=== PATIENT | male | born 1945 | race Caucasian/White ===

== ENCOUNTER 2018-02-09 05:44 | Inpatient (IN) | payer OTHER, MEDICARE ==
[2018-02-09] VITALS (11 sets, daily range): BP systolic 87–140; BP diastolic 39–82; PULSE 57–67; RESP 12–18; TEMP 97.5–97.7; O2SAT 93–98
[~2018-02-09] VITALS: Ht 177.8 cm; Wt 104.5 kg
[2018-02-09] MEDS ORDERED: HEPARIN SODIUM - SQ 10,000 UNITS/ML VIAL ONE (06:04)
[2018-02-09] MEDS ORDERED: VANCOMYCIN HCL 1000 MG VIAL ONE (06:04)
[2018-02-09] MEDS ORDERED: ceFAZolin 2 GM PREMIX 50 ML ONE (06:05)
[2018-02-09] MEDS ORDERED: CLAR10CA3 PO (06:28)
[2018-02-09] MEDS ORDERED: LACTCAP8 PO (06:28)
[2018-02-09] MEDS ORDERED: HYDR25TA5 PO (06:28)
[2018-02-09] MEDS ORDERED: ATOR40TA16 PO (06:28)
[2018-02-09] MEDS ORDERED: LEVO100T5 PO (06:28)
[2018-02-09] MEDS ORDERED: XARE10TA PO (06:28)
[2018-02-09] MEDS ORDERED: LISI-515 PO (06:28)
[2018-02-09] MEDS ORDERED: LACTATED RINGER'S 1000 ML IV PRN (06:30)
[2018-02-09] MEDS ORDERED: SODIUM CHLORID 0.9% 500 ML IV PRN (06:30)
[2018-02-09] MEDS ORDERED: PAPAVERINE 60 MG-NITROGLYCERIN 100 MCG-DILTIAZEM 100 MG in NS 100 ML IRRIGATION SCH ×4 (06:30)
[2018-02-09] MEDS ORDERED: METOPROLOL TARTRATE 25 MG TAB PO SCH (06:30)
[2018-02-09] MEDS ORDERED: CEFAZOLIN 500 MG in NS IRR BTL 500 ML IRRIGATION SCH (06:30)
[2018-02-09] MEDS ORDERED: METOPROLOL TARTRATE 25 MG TAB PO PRN (06:30)
[2018-02-09] MEDS ORDERED: POVIDONE IODINE 5% (ANTISEPSIS KIT) 4 APPLICATIONS EACH NARE PRN (06:30)
[2018-02-09] MEDS ORDERED: CEFAZOLIN INJ 2,000 MG in SODIUM CHLORIDE 0.9% INJ 100 ML IV SCH (06:30)
[2018-02-09] MEDS ORDERED: CHLORHEXIDINE GLUCONATE 2 % 1 PACK (2 CLOTHS) TOPICAL PRN (06:30)
[2018-02-09] MEDS ORDERED: SUGAMMADEX SODIUM 200 MG/2 ML VIAL IV PUSH ONE (06:45)
[2018-02-09] MEDS ORDERED: ACETAMINOPHEN 1000 MG/100 ML 100 ML IV ONE (06:45)
[2018-02-09] MEDS ORDERED: ceFAZolin 2 GM PREMIX 50 ML IV SCH (06:45)
[2018-02-09] MEDS ORDERED: MIDAZOLAM HCL 2 MG/2 ML VIAL ONE (06:45)
[2018-02-09] MEDS ORDERED: PAPAVERINE INJ 60 MG, NITROGLYCERIN INJ 100 MCG, VERAPAMIL INJ 100 MG in SODIUM CHLORID... IRRIGATION SCH (06:45)
[2018-02-09] MEDS ORDERED: fentaNYL CITRATE 250 MCG/5 ML AMP ONE (06:46)
[2018-02-09] MEDS ORDERED: INSULIN REGULAR 100 UNITS in NS 100 ML IV PRN (07:00)
[2018-02-09] MEDS: MUPIROCIN 2% OINT 22 GM TUBE EACH NARE SCH ×2 (09:00→21:00)
[2018-02-09] MEDS ORDERED: POTASSIUM CHLOR 20 MEQ PREMIX 100 ML ONE (11:31)
[2018-02-09] MEDS ORDERED: CARDIOPLEGIC IRR 1,000 ML ONE (11:31)
[2018-02-09] MEDS ORDERED: ceFAZolin INJ 1,000 MG VIAL ONE (11:35)
[2018-02-09] MEDS ORDERED: VECURONIUM BROMIDE 10 MG VIAL IV ONE (12:00)
[2018-02-09] MEDS ORDERED: SODIUM CHLORID 0.9% 500 ML INJ 500 ML IV ONE (12:00)
[2018-02-09] MEDS ORDERED: PROTAMINE SULFATE 250 MG/25 ML VIAL IV ONE (12:00)
[2018-02-09] MEDS ORDERED: NS 100 ML (PAB BAG) 300 ML IV ONE (12:00)
[2018-02-09] MEDS ORDERED: HEPARIN SODIUM - SQ 10,000 UNITS/ML VIAL OTHER ONE (12:00)
[2018-02-09] MEDS ORDERED: PHENYLEPHRINE HCL 10 MG/ML VIAL IV ONE (12:00)
[2018-02-09] MEDS ORDERED: LACTATED RINGER'S 1000 ML INJ 2,000 ML IV ONE (12:00)
[2018-02-09] MEDS ORDERED: DEXMEDETOMIDINE HCL 200 MCG/2 ML VIAL IV ONE (12:00)
[2018-02-09] MEDS ORDERED: NORMOSOL R INJ 2,000 ML IV ONE (12:00)
[2018-02-09] MEDS ORDERED: GLYCOPYRROLATE 0.2 MG/ML VIAL IV ONE (12:00)
[2018-02-09] MEDS ORDERED: SODIUM CHLOR 0.9% 250 ML INJ 500 ML IV ONE (12:00)
[2018-02-09] MEDS ORDERED: PHENYLEPH/NS 1000 MCG/10 ML SYR IV ONE (12:00)
[2018-02-09] MEDS ORDERED: ePHEDrine/NS 25 MG/5 ML SYRINGE IV ONE (12:00)
[2018-02-09] MEDS ORDERED: MAGNESIUM SULFATE 1 GM/2 ML VIAL IV ONE (12:00)
--- NOTE | 2018-02-09 12:14 | PD.OP ---
cc: Simba Mancia MD Operative Report Date of Surgery: Feb 09, 2018 Preoperative Diagnosis: Postoperative Diagnosis: Procedure: 1. Off-pump Coronary Artery Bypass Grafting x 3 with Left Internal Mammary Artery (ADAN) to Left Anterior Descending (LAD), reverse saphenous vein graft to the Diagonal 1 (D1) branch of the LAD, reverse saphenous vein graft to the Posterolateral Branch of the Right Coronary Artery (RPLB) 2. Left Atrial Appendage Excision 3. Left Leg Endoscopic Vein [place] 4. Synchronized Cardioversion 5. Intraoperative Vein Mapping Surgeon: Simba Mancia Ballroom Dance Instructor(s): Lynette Trent Operation and Findings: PREPROCEDURE DIAGNOSES 1. Severe Multi Vessel Coronary Artery Disease. 2. Chronic Atrial Fibrillation POSTPROCEDURE DIAGNOSES Same SURGICAL PROCEDURE 1. Off-pump Coronary Artery Bypass Grafting x 3 with Left Internal Mammary Artery (ADAN) to Left Anterior Descending (LAD), reverse saphenous vein graft to the Diagonal 1 (D1) branch of the LAD, reverse saphenous vein graft to the Posterolateral Branch of the Right Coronary Artery (RPLB) 2. Left Atrial Appendage Excision 3. Left Leg Endoscopic Vein [place] 4. Synchronized Cardioversion 5. Intraoperative Vein Mapping SURGEON Simba Mancia MD LEGAL ADMINISTRATOR Castillo Trent WELDER APPRENTICE ARCJackie Bean, [facility] ANESTHESIA General endotracheal MOTHER REPAIRER GISELL Rossi MD PREPARATION ChloraPrep. COUNTS Needle, sponge, and instrument counts were correct. DRAINS Two 32-[place] mediastinal tubes. COMPLICATIONS None. INDICATIONS FOR PROCEDURE The patient is a 73-year-old presenting with chest pain. Patient was noted to have multi-vessel coronary artery disease. The patient is being brought to the operating room for surgical revascularization therapy. PROCEDURE Patient was brought to the operating room and placed supine on the OR table. Following the induction of adequate general endotracheal anesthesia and placement of appropriate monitoring devices, intraoperative vein mapping was performed which revealed suitable-caliber conduit in bilateral thighs. The patient was then prepped and draped in standard sterile fashion. Next, 2500 units of intravenous heparin was given. The left greater saphenous vein was harvested endoscopically. This appeared to be a useable-caliber conduit. Simultaneously, a median sternotomy was performed and the left internal mammary artery dissected free off the posterior sternal table. The patient was systemically heparinized and anticoagulation monitored by serial ACT measurements. The internal mammary artery had good pulsatile flow in it and was a good-caliber conduit. The pericardium was then divided in the midline, the cradle created and targets analyzed. At this point, all anastomoses were performed in a beating-heart fashion using the Maquet stabilizing system. The left internal mammary artery was anastomosed to the distal LAD (1.75 mm) in an end-to-side fashion using 7-0 Prolene. Segment of saphenous vein graft was then anastomosed to the D1 (2 mm) in an end-to-side fashion using 7-0 Prolene. The final segment of saphenous vein graft was then anastomosed to the RPLB (1.75 mm ) in an end-to-side fashion using 7-0 Prolene. The proximal anastomoses were then constructed to the ascending aorta in a running manner using 6-0 Prolene. All anastomotic sites were inspected and appeared to be hemostatic and patent. The left atrial appendage was excised using a surgical stapler. Synchronized cardioversion was performed at 20J and the pt successfully converted into NSR. Protamine solution was given. Strict hemostasis was assured. The closure was undertaken. 2 chest tubes were placed. The pericardium was reapproximated in the midline. The sternum was approximated using sternal wires. The muscular and fascial layer were then closed in 3 layers. The endoscopic vein harvest site was closed in 2 layers. The patient tolerated the procedure well and was transferred to CVICU in stable condition. Simba Mancia MD Feb 09, 2018 12:14
[2018-02-09] MEDS ORDERED: MORPHINE SULFATE 2 MG/ML SYRINGE IV PUSH PRN (12:15)
[2018-02-09] MEDS ORDERED: hydrALAZINE HCL 20 MG/ML VIAL IV PUSH PRN (12:15)
[2018-02-09] MEDS ORDERED: ONDANSETRON HCL 4 MG/2 ML VIAL IV PUSH PRN (12:15)
[2018-02-09] MEDS ORDERED: SODIUM CHLORIDE 0.9% FLUSH 10 ML FLUSH IV FLUSH PRN (12:15)
[2018-02-09] MEDS ORDERED: ACETAMINOPHEN 650 MG SUPP RECTAL PRN (12:15)
[2018-02-09] MEDS ORDERED: ALBUMIN 5% INJ 250 ML IV PRN (12:30)
[2018-02-09] MEDS ORDERED: CLEVIDIPINE INJ 50 ML IV PRN (12:30)
[2018-02-09] MEDS ORDERED: MAGNESIUM SULFATE INJ 2 GM in SODIUM CHLORIDE 0.9% INJ 100 ML IV PRN ×2 (12:45→13:00)
[2018-02-09] MEDS ORDERED: LACTATED RINGER'S 1000 ML INJ 500 ML IV PRN (12:45)
[2018-02-09] MEDS ORDERED: METOPROLOL TARTRATE 5 MG/5 ML VIAL IV PUSH PRN (12:45)
[2018-02-09] MEDS ORDERED: ACETAMINOPHEN/HYDROcodone 325 MG/5 MG TAB PO PRN (12:45)
[2018-02-09] MEDS ORDERED: POTASSIUM CHLORIDE 20 MEQ CONTROLLED RELEASE TAB PO PRN ×2 (13:00)
[2018-02-09] MEDS ORDERED: DEXTROSE 50% IN WATER 50 ML VIAL(D50) IV PUSH PRN (13:00)
[2018-02-09] MEDS ORDERED: RESP: RACEPINEPHRINE 2.25% 0.5 ML NEB NEB PRN (13:00)
[2018-02-09] MEDS ORDERED: SODIUM BICARBONATE 8.4% SOLN 50 MEQ/50 ML VIAL IV PUSH PRN ×2 (13:00)
[2018-02-09] MEDS ORDERED: POTASSIUM CHLOR 20 MEQ PREMIX 100 ML IV PRN ×2 (13:00)
[2018-02-09] MEDS ORDERED: CALCIUM CHLORIDE 10% 1 GRAM/10 ML VIAL IV PUSH PRN (13:00)
[2018-02-09] MEDS ORDERED: Post-op Orders (for Pharmacy) OTHER ONE (13:00)
[2018-02-09] MEDS ORDERED: PHENYLEPHRINE INJ 40 MG in DEXTROSE 5% IN WATE 500 ML INJ 496 ML IV PRN ×2 (13:15)
[2018-02-09] MEDS ORDERED: INSULIN REGULAR (IV INFUSION) 100 UNITS in SODIUM CHLORIDE 0.9% INJ 99 ML IV PRN (13:15)
[2018-02-09] MEDS ORDERED: NITROGLYCERIN-D5W 50 MG/250 ML 250 ML IV PRN (13:15)
[2018-02-09] MEDS ORDERED: MEPERIDINE HCL 25 MG/ML VIAL IV PUSH PRN (13:15)
[2018-02-09] MEDS ORDERED: DOPamine 800 MG/500 ML INJ 500 ML IV PRN (13:30)
[2018-02-09] MEDS ORDERED: DEXMEDETOMIDINE INJ 200 MCG in SODIUM CHLORIDE 0.9% INJ 50 ML IV PRN (13:30)
[2018-02-09] MEDS ORDERED: DOBUTamine PREMIX DRIP 250 ML IV PRN (13:30)
--- NOTE | 2018-02-09 13:38 | RADRPT ---
EXAM DATE/TIME: 02/09/2018 12:44 [facility] COMPARISON: No previous studies available for comparison. INDICATIONS : Post-op CABG. MEDICAL HISTORY : None. SURGICAL HISTORY : None. ENCOUNTER: Initial ACUITY: 1 day PAIN SCORE: Non-responsive. LOCATION: chest FINDINGS: A single view of the chest demonstrates the lungs to be symmetrically aerated without evidence of mas s, infiltrate or effusion. Status post CABG. Mediastinal and left-sided chest tube without pneumothor ax. Endotracheal tube 6.5 cm above the aranza. Nasogastric tube with tip just distal to the GE juncti on. Left subclavian central line with tip in the SVC. The cardiomediastinal contours are unremarkable . Osseous structures are intact. CONCLUSION: 1. Status post CABG. 2. Support lines and tubes as described above. Adolfo Zarco MD on February 09, 2018 at 13:35 Board Certified Radiologist. This report was verified electronically.
[2018-02-09] MEDS: ACETAMINOPHEN 1000 MG/100 ML 100 ML IV SCH ×2 (13:49→18:47)
[2018-02-09] MEDS: POTASSIUM CHLOR 20 MEQ PREMIX 100 ML IV PRN ×2 (13:50→16:59)
[2018-02-09] MEDS: CALCIUM CHLORIDE INJ 1 GM in SODIUM CHLORIDE 0.9% INJ 100 ML IV PRN ×2 (13:51→16:58)
--- NOTE | 2018-02-09 15:15 | PD.CAR.PN ---
CVT Progress Note Subjective/Hospital Course: 73/ male , electively admitted for surgery, hx of abnormal stress test, underwent cardiac cath by Dr Melo Abreu , found to have multi vessel disease . PMH chronic afib on xarelto, HTN, TIA, hypothyroidism, HLP surgery : 02/09 1. Off-pump Coronary Artery Bypass Grafting x 3 with Left Internal Mammary Artery (ADAN) to Left Anterior Descending (LAD), reverse saphenous vein graft to the Diagonal 1 (D1) branch of the LAD, reverse saphenous vein graft to the Posterolateral Branch of the Right Coronary Artery (RPLB) 2. Left Atrial Appendage Excision 3. Left Leg Endoscopic Vein [place] 4. Synchronized Cardioversion 5. Intraoperative Vein Mapping Objective: Vital Signs Date Time Temp Pulse Resp B/P (MAP) Pulse Ox O2 Delivery O2 Flow Rate FiO2 02/09/18 14:25 94 Nasal Cannula 6 02/09/18 12:45 96 50 02/09/18 12:30 97 50 02/09/18 06:52 187/106 (133) 02/09/18 06:35 98.1 60 16 201/109 (139) 96 (1) S/P CABG x 3 (2) Coronary artery disease (3) Afib (4) Hypertension (5) Hyperlipemia Jazz West Feb 09, 2018 15:15
--- NOTE | 2018-02-09 15:18 | HHI.FF ---
Face to Face Verification Diagnosis: (1) Hyperlipemia (2) Coronary artery disease (3) Hypertension (4) Afib (5) S/P CABG x 3 Home Health Nursing Order: Signs/symptoms of disease process Medication education-adverse effect Wound care and dressing changes Nursing assessment with vital signs Instructions: Heart and Vascular Surgery patients *Special attention to sternal dressing Mandatory frequency Assess and evaluation, 4 days in a row The next week 3X week 2 times a week for 4 weeks 1 time a week for 5 weeks Schedule Heart and Vascular patients for full 60 day certification period Initial visit Review Open Heart Surgery Discharge Instructions (Sternal precautions, Activity, Elastic hose, Incision care, Driving, Incentive spirometry, Smoking, [place], Work and other) Need Betadine to paint incision Medication reconciliation Importance of follow up care/ check on appointments Make calendar record temperature daily When to call [facility] [place] nurse, review instructions, phone list Incentive Spirometry, demonstration Visit 1- Begin discharge instruction for patient family and/ or caregiver using teach back method- Signs and symptoms of infection Disease characteristics Medicines and side effects Foods and nutrition/ appetite Infection control/ hand washing/ hygiene Visit 2- Continue teaching Discharge instructions- include additional information on smoking cessation , sternal dressing (sternal vac) Visit 3- Continue teaching- Cough and deep breathing, incision monitoring. Choose my plate Visit 4- Continue teaching- Discuss limitations Discuss how they are feeling Discuss progress toward goals Remaining visits- continue teaching and monitoring For any questions please call : Tuesday 8am-5pm Heart & Vascular Surgery Office ( Dr. Mancia & Dr. Bella), After Hours / Nights (5pm -8am) Weekends and Holidays Please call [facility] Cardiac Intermediate Care Unit (CIC) Charge Nurse PREVENA Single Use Negative Wound Therapy System Caregiver Instruction Sheet 1. A Prevena dressing system was applied to the chest incision during surgery , to promote wound healing. It works via a suction device (negative pressure wound therapy) to remove low to moderate levels of exudate (drainage) and infectious materials. We recommend that the device stay in place for up to seven days, from day of surgery. 2. Day of Surgery__/ Day of Removal ___/ 3. The dressing should only be removed by a health skin care therapist. Please arrange removal of device to coincide with Home Health visit and or with Nursing staff at Rehab 4. If skin reddening or irritation of skin occurs, or excessive drainage, please notify the Cardiovascular Surgeons office at [phone]. 5. Light showering is permissible; however the pump should be disconnected and placed in safe location, where it will not get wet. The dressing should not be exposed to direct spray or submerged in water. No bath tub / shower only. Ensure the end of the tubing attached to the dressing is facing down so that water does not enter the top of the tube. 6. To remove Prevena dressing: press purple button to turn off device / remove the suction. Then disconnect the tubing from the pump. The fixation strips should be stretched away from the skin and the dressing lifted at one corner and peeled back until it has been fully removed. 7. After removal, it is ok to shower daily using liquid dial soap and clean wash cloth, rinse and pat dry, and leave incision open to air dry. For any concerns regarding Prevena dressing, and or wounds, please contact Jessica Diaz, patient navigator at [phone] or notify the Cardiovascular Surgeons office at [phone]. Incentive spirometry Q1 hr x 10, while awake, also use acapella device hourly whole awake Sternal Breast Bone Precautions: NO pushing or pulling, ( pt must use sternal pillow to support chest with all activities and with coughing ( takes up to 3 months breast bone to heal ) Daily incision care: ok to shower daily, no tub bath. Wash all incisions with liquid dial soap, clean wash cloth to each site, rinse and pat dry. Observe for any signs of infection, such as drainage which is dark yellow, benedict, green or foul smelling. Immediately report to the surgeon any drainage from the chest incision, or legs, and for any abnormal drainage from the chest tube sites. Notify surgeon if any temp >101.5 degrees F. When specialty dressing removed/ or if you do not have one, continue to shower daily as above, then rinse and pat incision dry and paint with betadine daily x 5 days. Allow steri strips to fall off if you have any. Avoid lotions, creams, salves, oils, etc. for the first month Please see attached forms for additional instructions regarding post Open Heart specialty wound vacuum dressings. SUZY or Prevena , Dressing to be removed by Nursing staff on __02/16/18 F/U appointment: as per DC instructions: PCP in 2 weeks, CV surgeon 2 weeks, Securities Clerk 3-4 weeks For any questions regarding incisions/ dressing / meds / post op care or above Symptoms, Tuesday 8am-5pm Heart & Vascular Surgery Office ( Dr. Mancia & Dr. Bella), After Hours / Nights (5pm -8am) Weekends and Holidays Please call [facility] Unit (CIC) Charge Nurse I have seen patient Nathaniel Trevizo on 02/09/18. My clinical findings support the need for the requested home health care services because: Deconditioned w/ increased weakness I certify that my clinical findings support that this patient is homebound because: Post-op weakness Jazz eWst Feb 09, 2018 15:18
[2018-02-09] MEDS: RESP: ALBUTEROL 2.5 MG/IPRATROPIUM 0.5 MG NEB (SCH) NEB ×2 (15:37→21:32)
[2018-02-09] MEDS ORDERED: DEXMEDETOMIDINE 200 MCG in NS 48 ML IV PRN (16:00)
[2018-02-09] MEDS: ceFAZolin 2 GM PREMIX 50 ML IV SCH (17:00)
[2018-02-09] MEDS ORDERED: SODIUM CHLORIDE 0.9% FLUSH 10 ML FLUSH IV FLUSH SCH (21:00)
[2018-02-09] MEDS ORDERED: AMIODARONE 200 MG TAB PO SCH (21:00)
[2018-02-09] MEDS: ATORVASTATIN 40 MG TAB PO SCH (22:10)
[2018-02-10] VITALS (20 sets, daily range): BP systolic 103–159; BP diastolic 68–94; PULSE 70–100; RESP 16–22; TEMP 97.5–98.5; O2SAT 91–96
[2018-02-10] MEDS: ceFAZolin 2 GM PREMIX 50 ML IV SCH ×4 (00:15→23:15)
[2018-02-10] MEDS: ACETAMINOPHEN 1000 MG/100 ML 100 ML IV SCH ×2 (00:17→05:59)
[2018-02-10] MEDS: RESP: ALBUTEROL 2.5 MG/IPRATROPIUM 0.5 MG NEB (SCH) NEB ×3 (03:45→20:21)
[2018-02-10 04:35] LABS: HEMATOCRIT 37.3 % (39.0-51.0); HEMOGLOBIN 12.9 GM/DL (13.0-17.0); MEAN CELL VOLUME 88.7 FL (80.0-100.0); MEAN CORPUSCULAR HEMOGLOBIN 30.6 PG (27.0-34.0); MEAN CORPUSCULAR HGB CONC 34.5 % (32.0-36.0); MEAN PLATELET VOLUME 8.5 FL (7.0-11.0); PLATELET COUNT 150 TH/MM3 (150-450); RED BLOOD COUNT 4.21 MIL/MM3 (4.50-5.90); RED CELL DISTRIBUTION WIDTH 13.2 % (11.6-17.2); WHITE BLOOD COUNT 10.3 TH/MM3 (4.0-11.0)
[2018-02-10 05:02] LABS: BICARBONATE 24.5 MEQ/L (21.0-32.0); CALCIUM 8.3 MG/DL (8.5-10.1); CREATININE 1.12 MG/DL (0.60-1.30); MAGNESIUM 1.5 MG/DL (1.5-2.5)
--- NOTE | 2018-02-10 05:03 | RADRPT ---
EXAM DATE/TIME: 02/10/2018 04:12 [facility] COMPARISON: CHEST SINGLE AP, February 09, 2018, 12:44. INDICATIONS : Status post CABG. MEDICAL HISTORY : None. SURGICAL HISTORY : None. ENCOUNTER: Subsequent ACUITY: 1 day PAIN SCORE: Non-responsive. LOCATION: Bilateral chest FINDINGS: A single portable frontal view of the chest shows a left thoracostomy tube without pneumothorax. Left subclavian central line. Low lung volumes. No infiltrate or effusion. Heart is normal in size. Media n sternotomy wires. CONCLUSION: Life-support lines. Clear lungs. Juan Jose Amador Jr., MD on February 10, 2018 at 5:01 Board Certified Radiologist. This report was verified electronically.
[2018-02-10] MEDS: PANTOPRAZOLE SOD 40 MG DELAYED RELEASE TAB PO SCH (05:54)
[2018-02-10] MEDS: LEVOTHYROXINE SODIUM 100 MCG TAB PO SCH (05:54)
[2018-02-10] MEDS: MUPIROCIN 2% OINT 22 GM TUBE EACH NARE SCH ×2 (09:00→21:00)
[2018-02-10] MEDS ORDERED: SOD PHOSPHATE/SOD BIPHOSPHATE (ADULT) ENEMA 133ML RECTAL PRN (09:00)
[2018-02-10] MEDS ORDERED: BISACODYL 10 MG SUPP RECTAL PRN (09:00)
[2018-02-10] MEDS ORDERED: DEXTROSE 50% IN WATER 50 ML VIAL(D50) IV PUSH PRN (09:00)
[2018-02-10] MEDS: CLOPIDOGREL 75 MG TAB PO SCH (09:03)
[2018-02-10] MEDS: ASPIRIN 81 MG CHEW TAB PO SCH (09:04)
[2018-02-10] MEDS ORDERED: FUROSEMIDE 40 MG/4 ML VIAL IV PUSH ONE (10:00)
[2018-02-10] MEDS ORDERED: GLUCAGON 1 MG/ML VIAL OTHER PRN (10:00)
[2018-02-10] MEDS ORDERED: POTASSIUM CHLORIDE 10 MEQ CONTROLLED RELEASE TAB PO ONE (10:00)
[2018-02-10] MEDS: RESP: ALBUTEROL 2.5 MG/IPRATROPIUM 0.5 MG NEB (PRN) NEB ×2 (10:03→12:08)
[2018-02-10] MEDS: MULTIVITAMINS/MINERALS THERAPEUTIC TAB PO SCH (10:07)
[2018-02-10] MEDS: DOCUSATE SODIUM 100 MG CAP PO SCH ×2 (10:08→20:46)
[2018-02-10] MEDS: METOPROLOL TARTRATE 25 MG TAB PO SCH ×2 (10:08→20:46)
[2018-02-10] MEDS: MAGNESIUM HYDROXIDE SUSP 30 ML CUP PO SCH (10:11)
[2018-02-10] MEDS: AMIODARONE 200 MG TAB PO SCH ×2 (10:11→20:46)
[2018-02-10] MEDS: INSULIN ASPART SUPPLEMENTAL SCALE SQ SCH ×4 (10:14→21:33)
--- NOTE | 2018-02-10 16:21 | PD.CAR.PN ---
CVT Progress Note Subjective/Hospital Course: 73/ male , electively admitted for surgery, hx of abnormal stress test, underwent cardiac cath by Dr Melo Abreu , found to have multi vessel disease . PMH chronic afib on xarelto, HTN, TIA, hypothyroidism, HLP surgery : 02/09 1. Off-pump Coronary Artery Bypass Grafting x 3 with Left Internal Mammary Artery (ADAN) to Left Anterior Descending (LAD), reverse saphenous vein graft to the Diagonal 1 (D1) branch of the LAD, reverse saphenous vein graft to the Posterolateral Branch of the Right Coronary Artery (RPLB) 2. Left Atrial Appendage Excision 3. Left Leg Endoscopic Vein [place] 4. Synchronized Cardioversion 5. Intraoperative Vein Mapping extubated after surgery crystalloid 2800cc, 280cc cell saver, 600cc cell saver 02/10 up in chair , on nasal cannula remains in NSR was on xarelto at home leave chest tubes in , transfer to stepdown Objective: GENERAL: A&O x 3 SKIN: Warm and dry. prevena dressing to chest, incision intact left leg HEAD: Normocephalic. EYES: No scleral icterus. No injection or drainage. NECK: Supple, trachea midline. No JVD or lymphadenopathy. CARDIOVASCULAR: Regular rate and rhythm without murmurs, gallops, or rubs. RESPIRATORY: Breath sounds equal bilaterally. No accessory muscle use. chest tube to wall suction, no air leak , drained 80cc/ 12 hrs GASTROINTESTINAL: Abdomen soft, non-tender, nondistended. MUSCULOSKELETAL: No cyanosis, or edema. BACK: Nontender without obvious deformity. No CVA tenderness. Vital Signs Date Time Temp Pulse Resp B/P (MAP) Pulse Ox O2 Delivery O2 Flow Rate FiO2 02/10/18 16:00 83 02/10/18 15:00 91 Nasal Cannula 3.00 02/10/18 15:00 97.9 95 19 131/75 (93) 91 02/10/18 15:00 76 02/10/18 14:00 92 02/10/18 13:00 95 02/10/18 12:15 77 22 126/71 (89) 96 02/10/18 11:00 91 Nasal Cannula 4.00 02/10/18 11:00 98.5 89 16 111/68 (82) 93 02/10/18 11:00 84 4/20/18 10:15 16 02/10/18 10:05 94 Nasal Cannula 4.00 02/10/18 08:00 93 Nasal Cannula 4.00 02/10/18 08:00 98.2 91 16 145/94 (111) 93 Arterial Line 02/10/18 08:00 91 02/10/18 05:00 18 02/10/18 04:57 92 Nasal Cannula 4.00 02/10/18 04:47 90 Nasal Cannula 4.00 02/10/18 04:00 90 Nasal Cannula 4.00 02/10/18 04:00 97.5 83 20 103/68 (80) 94 113/68 (83) 02/10/18 03:00 81 02/10/18 00:50 18 02/10/18 00:00 98.4 70 20 128/77 (94) 95 145/79 (101) 02/09/18 23:21 65 02/09/18 23:19 95 Nasal Cannula 3.00 02/09/18 22:00 133/82 (99) 94 140/64 (89) 02/09/18 21:32 93 Nasal Cannula 3.00 02/09/18 20:00 97.7 65 18 96 131/63 (85) 02/09/18 20:00 96 Nasal Cannula 3.00 02/09/18 19:30 97 Nasal Cannula 5.00 02/09/18 19:00 57 Result Diagram: 02/10/185 02/10/18414 Telemetry: NSR EKG no acute changes (1) S/P CABG x 3 Plan: ASA, statin , plavix BB , statin OOB ambulate, pulm toileting CM to eval for C at discharge (2) Coronary artery disease (3) Afib Plan: s/p left atrial appendage excision in NSR was on xarelto at home (4) Hypertension Plan: controlled (5) Hyperlipemia Plan: on statin Jazz West Feb 10, 2018 16:21
[2018-02-10] MEDS: ACETAMINOPHEN 325 MG TAB PO PRN (20:45)
[2018-02-10] MEDS: SENNOSIDES 8.6 MG TAB PO SCH (20:46)
[2018-02-10] MEDS: ATORVASTATIN 40 MG TAB PO SCH (20:46)
[2018-02-11] VITALS (26 sets, daily range): BP systolic 122–153; BP diastolic 73–90; PULSE 65–90; RESP 16–20; TEMP 97.4–98.9; O2SAT 88–95
[2018-02-11] MEDS: INSULIN ASPART SUPPLEMENTAL SCALE SQ SCH ×5 (02:00→21:00)
[2018-02-11] MEDS: ACETAMINOPHEN 325 MG TAB PO PRN ×4 (03:08→19:53)
[2018-02-11 04:29] LABS: AUTOMATED NEUTROPHIL # 7.6 TH/MM3 (1.8-7.7); BASOPHIL % 0.3 % (0.0-2.0); EOSINOPHIL # 0.2 TH/MM3 (0-0.4); EOSINOPHIL % 1.5 % (0.0-4.0); HEMATOCRIT 32.9 % (39.0-51.0); HEMOGLOBIN 11.5 GM/DL (13.0-17.0); LYMPH % 10.5 % (9.0-44.0); LYMPHOCYTE # 1.1 TH/MM3 (1.0-4.8); MEAN CORPUSCULAR HEMOGLOBIN 30.8 PG (27.0-34.0); MEAN PLATELET VOLUME 8.3 FL (7.0-11.0); MONO % 12.7 % (0.0-8.0); MONOCYTE # 1.3 TH/MM3 (0-0.9); PLATELET COUNT 121 TH/MM3 (150-450); RED BLOOD COUNT 3.73 MIL/MM3 (4.50-5.90); RED CELL DISTRIBUTION WIDTH 13.3 % (11.6-17.2); WHITE BLOOD COUNT 10.1 TH/MM3 (4.0-11.0)
[2018-02-11 04:48] LABS: BICARBONATE 27.6 MEQ/L (21.0-32.0); CALCIUM 7.7 MG/DL (8.5-10.1); CREATININE 1.08 MG/DL (0.60-1.30); MAGNESIUM 1.6 MG/DL (1.5-2.5)
[2018-02-11] MEDS: LEVOTHYROXINE SODIUM 100 MCG TAB PO SCH (06:11)
[2018-02-11] MEDS: PANTOPRAZOLE SOD 40 MG DELAYED RELEASE TAB PO SCH (06:11)
[2018-02-11] MEDS: RESP: ALBUTEROL 2.5 MG/IPRATROPIUM 0.5 MG NEB (SCH) NEB ×3 (07:40→21:10)
--- NOTE | 2018-02-11 08:19 | PD.CAR.PN ---
CVT Progress Note CVT: POD #: 2 Subjective/Hospital Course: 73/ male , electively admitted for surgery, hx of abnormal stress test, underwent cardiac cath by Dr Melo Abreu , found to have multi vessel disease . PMH chronic afib on xarelto, HTN, TIA, hypothyroidism, HLP surgery : 02/09 1. Off-pump Coronary Artery Bypass Grafting x 3 with Left Internal Mammary Artery (ADAN) to Left Anterior Descending (LAD), reverse saphenous vein graft to the Diagonal 1 (D1) branch of the LAD, reverse saphenous vein graft to the Posterolateral Branch of the Right Coronary Artery (RPLB) 2. Left Atrial Appendage Excision 3. Left Leg Endoscopic Vein [place] 4. Synchronized Cardioversion 5. Intraoperative Vein Mapping extubated after surgery crystalloid 2800cc, 280cc cell saver, 600cc cell saver 02/10 up in chair , on nasal cannula remains in NSR was on xarelto at home leave chest tubes in , transfer to stepdown 02/11/18 No complaints today, doing well Objective: Vital Signs Date Time Temp Pulse Resp B/P (MAP) Pulse Ox O2 Delivery O2 Flow Rate FiO2 02/11/18 07:43 94 Nasal Cannula 3.00 02/11/18 07:00 98.8 77 16 131/82 (98) 95 02/11/18 07:00 95 Nasal Cannula 3.00 02/11/18 06:29 79 02/11/18 05:23 72 02/11/18 04:12 65 02/11/18 03:50 81 02/11/18 03:20 Nasal Cannula 3.00 02/11/18 03:20 98.9 90 20 150/90 (110) 93 02/11/18 02:30 78 02/11/18 01:21 81 02/11/18 00:00 69 02/10/18 23:45 98.5 79 20 134/74 (94) 92 02/10/18 23:45 Nasal Cannula 3.00 02/10/18 23:00 87 02/10/18 22:00 72 02/10/18 21:00 70 02/10/18 20:40 75 02/10/18 20:21 92 Nasal Cannula 3.00 02/10/18 19:50 Nasal Cannula 3.00 02/10/18 19:50 98.3 93 21 159/84 (109) 93 02/10/18 19:50 100 02/10/18 18:00 94 02/10/18 17:00 93 02/10/18 16:00 83 02/10/18 15:00 91 Nasal Cannula 3.00 02/10/18 15:00 97.9 95 19 131/75 (93) 91 02/10/18 15:00 76 02/10/18 14:00 92 02/10/18 13:00 95 02/10/18 12:15 77 22 126/71 (89) 96 02/10/18 11:00 91 Nasal Cannula 4.00 02/10/18 11:00 98.5 89 16 111/68 (82) 93 02/10/18 11:00 84 02/10/18 10:15 16 02/10/18 10:05 94 Nasal Cannula 4.00 Labs: Laboratory Tests Test 02/11/18 03:40 White Blood Count 10.1 TH/MM3 (4.0-11.0) Red Blood Count 3.73 MIL/MM3 (4.50-5.90) Hemoglobin 11.5 GM/DL (13.0-17.0) Hematocrit 32.9 % (39.0-51.0) Mean Corpuscular Volume 88.0 FL (80.0-100.0) Mean Corpuscular Hemoglobin 30.8 PG (27.0-34.0) Mean Corpuscular Hemoglobin Concent 35.0 % (32.0-36.0) Red Cell Distribution Width 13.3 % (11.6-17.2) Platelet Count 121 TH/MM3 (150-450) Mean Platelet Volume 8.3 FL (7.0-11.0) Neutrophils (%) (Auto) 75.0 % (16.0-70.0) Lymphocytes (%) (Auto) 10.5 % (9.0-44.0) Monocytes (%) (Auto) 12.7 % (0.0-8.0) Eosinophils (%) (Auto) 1.5 % (0.0-4.0) Basophils (%) (Auto) 0.3 % (0.0-2.0) Neutrophils # (Auto) 7.6 TH/MM3 (1.8-7.7) Lymphocytes # (Auto) 1.1 TH/MM3 (1.0-4.8) Monocytes # (Auto) 1.3 TH/MM3 (0-0.9) Eosinophils # (Auto) 0.2 TH/MM3 (0-0.4) Basophils # (Auto) 0.0 TH/MM3 (0-0.2) CBC Comment DIFF FINAL Differential Comment Blood Urea Nitrogen 16 MG/DL (7-18) Creatinine 1.08 MG/DL (0.60-1.30) Random Glucose 121 MG/DL (74-106) Calcium Level 7.7 MG/DL (8.5-10.1) Magnesium Level 1.6 MG/DL (1.5-2.5) Sodium Level 139 MEQ/L (136-145) Potassium Level 3.5 MEQ/L (3.5-5.1) Chloride Level 103 MEQ/L (98-107) Carbon Dioxide Level 27.6 MEQ/L (21.0-32.0) Anion Gap 8 MEQ/L (5-15) Estimat Glomerular Filtration Rate 67 ML/MIN (>89) Result Diagram: 02/11/18 0340 02/11/18 0340 Cardiovascular: RRR Telemetry: NSR Pulmonary: CTA GI/: NABS Incision: dry and intact CT: 120ml/12hrs Plan: Continue chest tubes one more day. Encourage ambulation Stim BM Diurese Start BB (1) S/P CABG x 3 Plan: ASA, statin , plavix BB , statin OOB ambulate, pulm toileting CM to eval for HHC at discharge (2) Coronary artery disease (3) Afib Plan: s/p left atrial appendage excision in NSR was on xarelto at home (4) Hypertension Plan: controlled (5) Hyperlipemia Plan: on statin Mela Bella MD Feb 11, 2018 08:19
[2018-02-11] MEDS ORDERED: PILL SPLITTER OTHER PRN (08:30)
[2018-02-11] MEDS: MUPIROCIN 2% OINT 22 GM TUBE EACH NARE SCH ×2 (09:00→21:00)
--- NOTE | 2018-02-11 09:00 | EKG ---
Date Performed: 02/10/2018 Time Performed: 06:59:16 PTAGE: 73 years EKG: Sinus rhythm Lead(s) unsuitable for analysis: V4 Normal ECG based on available leads NO PREVIOUS TRACING DOCTOR: Daryl Bernard Interpretating Date/Time 02/11/2018 08:58:58
[2018-02-11] MEDS: POLYETHYLENE GLYCOL 17 GM PKG PO SCH (09:52)
[2018-02-11] MEDS: FUROSEMIDE 40 MG/4 ML VIAL IV PUSH SCH ×2 (09:54→17:32)
[2018-02-11] MEDS: MAGNESIUM HYDROXIDE SUSP 30 ML CUP PO SCH (09:54)
[2018-02-11] MEDS: DOCUSATE SODIUM 100 MG CAP PO SCH ×2 (09:54→21:04)
[2018-02-11] MEDS: LORATADINE 10 MG TAB PO SCH (09:55)
[2018-02-11] MEDS: METOPROLOL TARTRATE 25 MG TAB PO SCH ×2 (09:55→21:04)
[2018-02-11] MEDS: CLOPIDOGREL 75 MG TAB PO SCH (09:56)
[2018-02-11] MEDS: ASPIRIN 81 MG CHEW TAB PO SCH (09:56)
[2018-02-11] MEDS: AMIODARONE 200 MG TAB PO SCH ×2 (09:56→21:04)
[2018-02-11] MEDS: POTASSIUM CHLORIDE 10 MEQ CONTROLLED RELEASE TAB PO SCH ×2 (09:56→21:04)
[2018-02-11] MEDS: MULTIVITAMINS/MINERALS THERAPEUTIC TAB PO SCH (09:57)
[2018-02-11] MEDS: SODIUM CHLORIDE 0.9% FLUSH 10 ML FLUSH IV FLUSH PRN (09:57)
[2018-02-11] MEDS ORDERED: PNEUMOCOCCAL POLYVALENT INJ 25 MCG/0.5 ML SYR IM ONE (10:00)
[2018-02-11] MEDS: ATORVASTATIN 40 MG TAB PO SCH (21:04)
[2018-02-11] MEDS: SENNOSIDES 8.6 MG TAB PO SCH (21:04)
[2018-02-12] VITALS (27 sets, daily range): BP systolic 114–163; BP diastolic 65–91; PULSE 67–84; RESP 20; TEMP 97.9–98.7; O2SAT 91–94
[2018-02-12] MEDS: LEVOTHYROXINE SODIUM 100 MCG TAB PO SCH (05:17)
[2018-02-12] MEDS: PANTOPRAZOLE SOD 40 MG DELAYED RELEASE TAB PO SCH (05:17)
[2018-02-12] MEDS: RESP: ALBUTEROL 2.5 MG/IPRATROPIUM 0.5 MG NEB (SCH) NEB (07:47)
[2018-02-12] MEDS: INSULIN ASPART SUPPLEMENTAL SCALE SQ SCH ×4 (08:00→21:00)
[2018-02-12] MEDS: MUPIROCIN 2% OINT 22 GM TUBE EACH NARE SCH ×2 (09:00→21:00)
[2018-02-12] MEDS: DOCUSATE SODIUM 100 MG CAP PO SCH ×2 (09:28→21:00)
[2018-02-12] MEDS: MAGNESIUM HYDROXIDE SUSP 30 ML CUP PO SCH (09:28)
[2018-02-12] MEDS: ASPIRIN 81 MG CHEW TAB PO SCH (09:28)
[2018-02-12] MEDS: POLYETHYLENE GLYCOL 17 GM PKG PO SCH (09:28)
[2018-02-12] MEDS: METOPROLOL TARTRATE 25 MG TAB PO SCH ×2 (09:29→21:30)
[2018-02-12] MEDS: CLOPIDOGREL 75 MG TAB PO SCH (09:29)
[2018-02-12] MEDS: AMIODARONE 200 MG TAB PO SCH ×2 (09:29→21:29)
[2018-02-12] MEDS: MULTIVITAMINS/MINERALS THERAPEUTIC TAB PO SCH (09:29)
[2018-02-12] MEDS: POTASSIUM CHLORIDE 10 MEQ CONTROLLED RELEASE TAB PO SCH ×2 (09:29→21:29)
[2018-02-12] MEDS: LORATADINE 10 MG TAB PO SCH (09:29)
[2018-02-12] MEDS: FUROSEMIDE 40 MG/4 ML VIAL IV PUSH SCH ×2 (09:30→17:06)
[2018-02-12] MEDS: SODIUM CHLORIDE 0.9% FLUSH 10 ML FLUSH IV FLUSH PRN ×2 (09:30→21:30)
[2018-02-12] MEDS: MAGNESIUM SULFATE 1 GM PREMIX 100 ML IV SCH ×2 (11:00→12:00)
--- NOTE | 2018-02-12 11:47 | PD.CAR.PN ---
CVT Progress Note CVT: POD #: 3 Subjective/Hospital Course: 73/ male , electively admitted for surgery, hx of abnormal stress test, underwent cardiac cath by Dr Melo Abreu , found to have multi vessel disease . PMH chronic afib on xarelto, HTN, TIA, hypothyroidism, HLP surgery : 02/09 1. Off-pump Coronary Artery Bypass Grafting x 3 with Left Internal Mammary Artery (ADAN) to Left Anterior Descending (LAD), reverse saphenous vein graft to the Diagonal 1 (D1) branch of the LAD, reverse saphenous vein graft to the Posterolateral Branch of the Right Coronary Artery (RPLB) 2. Left Atrial Appendage Excision 3. Left Leg Endoscopic Vein [place] 4. Synchronized Cardioversion 5. Intraoperative Vein Mapping extubated after surgery crystalloid 2800cc, 280cc cell saver, 600cc cell saver 02/10 up in chair , on nasal cannula remains in NSR was on xarelto at home leave chest tubes in , transfer to stepdown 02/11/18 No complaints today, doing well 02/12/18 No complaints today. Doing well Objective: Vital Signs Date Time Temp Pulse Resp B/P (MAP) Pulse Ox O2 Delivery O2 Flow Rate FiO2 02/12/18 10:00 75 02/12/18 09:00 83 02/12/18 08:00 84 02/12/18 07:47 92 Nasal Cannula 5.00 02/12/18 07:35 98.7 77 20 119/80 (93) 94 02/12/18 07:35 67 02/12/18 07:35 94 4.00 02/12/18 06:12 73 02/12/18 05:00 74 02/12/18 04:44 91 Nasal Cannula 4.00 02/12/18 04:43 98.7 78 126/78 (94) 91 02/12/18 04:00 78 02/12/18 03:00 72 02/12/18 02:00 72 02/12/18 01:00 72 02/12/18 00:33 92 Nasal Cannula 4.00 02/12/18 00:31 98.5 75 122/67 (85) 92 02/12/18 00:00 70 02/11/18 23:00 72 02/11/18 22:00 72 02/11/18 21:20 Nasal Cannula 4.00 02/11/18 21:00 76 02/11/18 20:00 86 02/11/18 19:00 98.3 88 153/82 (105) 91 02/11/18 19:00 84 02/11/18 19:00 91 Nasal Cannula 4.00 02/11/18 18:00 79 02/11/18 17:00 83 02/11/18 16:00 84 02/11/18 15:20 16 02/11/18 15:00 79 02/11/18 15:00 91 Nasal Cannula 4.00 02/11/18 15:00 98.0 81 16 150/73 (98) 91 02/11/18 14:00 86 02/11/18 13:00 76 02/11/18 12:00 88 Result Diagram: 02/11/1833902/11/18 034 Cardiovascular: RRR Telemetry: NSR Pulmonary: Few crackles bilat GI/: NABS, NT Incision: dry and intact CT: ~80ml/12hrs Plan: Wean O2 Diurese Stim BM Encourage ambulation Possible d/c in AM (1) S/P CABG x 3 Plan: ASA, statin , plavix BB , statin OOB ambulate, pulm toileting CM to eval for HHC at discharge (2) Coronary artery disease (3) Afib Plan: s/p left atrial appendage excision in NSR was on xarelto at home (4) Hypertension Plan: controlled (5) Hyperlipemia Plan: on statin Mela Bella MD Feb 12, 2018 11:47
[2018-02-12] MEDS: ACETAMINOPHEN 325 MG TAB PO PRN ×2 (13:41→21:30)
[2018-02-12] MEDS: SENNOSIDES 8.6 MG TAB PO SCH (21:00)
[2018-02-12] MEDS: ATORVASTATIN 40 MG TAB PO SCH (21:29)
[2018-02-13] VITALS (32 sets, daily range): BP systolic 96–151; BP diastolic 52–82; PULSE 62–92; RESP 16; TEMP 97.9–98.6; O2SAT 90–93
[2018-02-13] MEDS: PANTOPRAZOLE SOD 40 MG DELAYED RELEASE TAB PO SCH (06:28)
[2018-02-13] MEDS: LEVOTHYROXINE SODIUM 100 MCG TAB PO SCH (06:28)
[2018-02-13] MEDS: INSULIN ASPART SUPPLEMENTAL SCALE SQ SCH ×4 (07:07→21:27)
[2018-02-13] MEDS: FUROSEMIDE 40 MG/4 ML VIAL IV PUSH SCH (08:45)
[2018-02-13] MEDS: ASPIRIN 81 MG CHEW TAB PO SCH (08:45)
[2018-02-13] MEDS: MULTIVITAMINS/MINERALS THERAPEUTIC TAB PO SCH (08:45)
[2018-02-13] MEDS: AMIODARONE 200 MG TAB PO SCH ×2 (08:45→20:28)
[2018-02-13] MEDS: LORATADINE 10 MG TAB PO SCH (08:46)
[2018-02-13] MEDS: CLOPIDOGREL 75 MG TAB PO SCH (08:46)
[2018-02-13] MEDS: DOCUSATE SODIUM 100 MG CAP PO SCH ×2 (08:46→20:28)
[2018-02-13] MEDS: POTASSIUM CHLORIDE 10 MEQ CONTROLLED RELEASE TAB PO SCH (08:46)
[2018-02-13] MEDS: MAGNESIUM HYDROXIDE SUSP 30 ML CUP PO SCH (08:47)
[2018-02-13] MEDS: METOPROLOL TARTRATE 25 MG TAB PO SCH ×2 (08:47→20:28)
[2018-02-13] MEDS: POLYETHYLENE GLYCOL 17 GM PKG PO SCH (08:47)
--- NOTE | 2018-02-13 09:57 | RADRPT ---
EXAM DATE/TIME: 02/13/2018 09:33 [facility] COMPARISON: CHEST SINGLE AP, February 10, 2018, 4:12. INDICATIONS : Evaluate for pneumothorax, status chest tube removal. MEDICAL HISTORY : None. SURGICAL HISTORY : CABG. ENCOUNTER: Subsequent ACUITY: 4 - 6 days PAIN SCORE: 0/10 LOCATION: Bilateral chest FINDINGS: A single AP erect portable view of the chest was obtained and demonstrates interval removal of the pr eviously noted left-sided chest tube with no visualized pneumothorax. Mild hazy opacity is present at the left lung base. Right lung is clear. Patient is status post median sternotomy. The left subclavi an central line has been removed as well. The left costophrenic angle appears mildly blunted. There a re multiple overlying electrocardiogram leads. CONCLUSION: 1. Interval removal of left-sided chest tube and left subclavian central venous line with no pneumoth orax. 2. Mild hazy opacity at the left lung base with apparent blunting of left costophrenic angle which co uld indicate infiltrate and/or effusion. Valente Chester MD on February 13, 2018 at 9:51 Board Certified Radiologist. This report was verified electronically.
[2018-02-13 10:23] LABS: BICARBONATE 29.1 MEQ/L (21.0-32.0); CALCIUM 8.8 MG/DL (8.5-10.1); CREATININE 1.37 MG/DL (0.60-1.30)
[2018-02-13] MEDS ORDERED: POTASSIUM CHLORIDE 20 MEQ CONTROLLED RELEASE TAB PO ONE (12:30)
[2018-02-13] MEDS ORDERED: OXYGENDME NAS.CANULA (14:15)
--- NOTE | 2018-02-13 14:17 | PD.CAR.PN ---
CVT Progress Note Subjective/Hospital Course: 73/ male , electively admitted for surgery, hx of abnormal stress test, underwent cardiac cath by Dr Melo Abreu , found to have multi vessel disease . PMH chronic afib on xarelto, HTN, TIA, hypothyroidism, HLP surgery : 02/09 1. Off-pump Coronary Artery Bypass Grafting x 3 with Left Internal Mammary Artery (ADAN) to Left Anterior Descending (LAD), reverse saphenous vein graft to the Diagonal 1 (D1) branch of the LAD, reverse saphenous vein graft to the Posterolateral Branch of the Right Coronary Artery (RPLB) 2. Left Atrial Appendage Excision 3. Left Leg Endoscopic Vein [place] 4. Synchronized Cardioversion 5. Intraoperative Vein Mapping extubated after surgery crystalloid 2800cc, 280cc cell saver, 600cc cell saver 02/10 up in chair , on nasal cannula remains in NSR was on xarelto at home leave chest tubes in , transfer to stepdown 02/11/18 No complaints today, doing well 02/12/18 No complaints today. Doing well 02/13 did not pass home walk test decrease lasix dose, dc plavix and resume xarelto eval for dc in am recheck BMP in am Objective: Vital Signs Date Time Temp Pulse Resp B/P (MAP) Pulse Ox O2 Delivery O2 Flow Rate FiO2 02/13/18 14:00 80 02/13/18 13:00 76 02/13/18 12:00 77 02/13/18 11:32 92 Nasal Cannula 2.00 02/13/18 11:31 98.3 74 16 122/78 (93) 92 02/13/18 11:15 2.00 02/13/18 11:00 66 02/13/18 10:00 78 02/13/18 09:13 93 Nasal Cannula 2.00 02/13/18 09:00 76 02/13/18 08:50 96/52 (67) 02/13/18 08:30 94 Nasal Cannula 2.00 02/13/18 08:00 68 02/13/18 08:00 98.0 78 98/53 (68) 90 02/13/18 07:48 88 Nasal Cannula 1.00 02/13/18 07:00 66 02/13/18 06:00 71 02/13/18 05:04 68 02/13/18 04:41 97.9 69 115/72 (86) 92 02/13/18 04:41 92 Nasal Cannula 1.00 02/13/18 04:00 65 02/13/18 03:00 66 02/13/18 02:00 62 02/13/18 01:00 62 02/13/18 00:48 91 Nasal Cannula 2.00 02/13/18 00:40 98.1 69 129/75 (93) 91 02/13/18 00:00 76 02/12/18 23:00 68 02/12/18 22:22 Nasal Cannula 2.00 02/12/18 22:00 78 02/12/18 21:00 80 02/12/18 20:00 80 02/12/18 19:00 93 Nasal Cannula 2.00 02/12/18 19:00 74 02/12/18 19:00 97.9 79 163/91 (115) 93 02/12/18 18:00 84 02/12/18 17:00 75 02/12/18 16:00 74 02/12/18 16:00 94 Nasal Cannula 2.00 02/12/18 15:00 93 4.00 02/12/18 15:00 98.6 82 20 114/65 (81) 93 02/12/18 15:00 80 Labs: Laboratory Tests Test 02/13/18 09:25 Blood Urea Nitrogen 21 MG/DL (7-18) Creatinine 1.37 MG/DL (0.60-1.30) Random Glucose 192 MG/DL (74-106) Calcium Level 8.8 MG/DL (8.5-10.1) Magnesium Level 2.0 MG/DL (1.5-2.5) Sodium Level 136 MEQ/L (136-145) Potassium Level 3.7 MEQ/L (3.5-5.1) Chloride Level 99 MEQ/L (98-107) Carbon Dioxide Level 29.1 MEQ/L (21.0-32.0) Anion Gap 8 MEQ/L (5-15) Estimat Glomerular Filtration Rate 51 ML/MIN (>89) Result Diagram: 02/11/18 0340 02/13/18 0925 Telemetry: NSR (1) S/P CABG x 3 Plan: ASA, statin , BB , statin OOB ambulate, pulm toileting will dc in am with 02 CM to eval for HHC at discharge (2) Coronary artery disease (3) Afib Plan: s/p left atrial appendage excision in NSR, resume xarelto (4) Hypertension Plan: controlled (5) Hyperlipemia Plan: on statin [facility] Feb 13, 2018 14:17
[2018-02-13] MEDS: SENNOSIDES 8.6 MG TAB PO SCH (20:28)
[2018-02-13] MEDS: ATORVASTATIN 40 MG TAB PO SCH (20:28)
[2018-02-14] VITALS (13 sets, daily range): BP systolic 125–165; BP diastolic 70–89; PULSE 65–72; RESP 18; TEMP 97.9–98.4; O2SAT 92–94
[2018-02-14] MEDS: PANTOPRAZOLE SOD 40 MG DELAYED RELEASE TAB PO SCH (06:17)
[2018-02-14] MEDS: LEVOTHYROXINE SODIUM 100 MCG TAB PO SCH (06:17)
[2018-02-14] MEDS: INSULIN ASPART SUPPLEMENTAL SCALE SQ SCH (08:00)
[2018-02-14] MEDS: METOPROLOL TARTRATE 25 MG TAB PO SCH (08:32)
[2018-02-14] MEDS: MULTIVITAMINS/MINERALS THERAPEUTIC TAB PO SCH (08:32)
[2018-02-14] MEDS: AMIODARONE 200 MG TAB PO SCH (08:33)
[2018-02-14] MEDS: ASPIRIN 81 MG CHEW TAB PO SCH (08:34)
[2018-02-14] MEDS: LORATADINE 10 MG TAB PO SCH (08:34)
[2018-02-14] MEDS: MAGNESIUM HYDROXIDE SUSP 30 ML CUP PO SCH (08:35)
[2018-02-14] MEDS: POLYETHYLENE GLYCOL 17 GM PKG PO SCH (08:35)
[2018-02-14] MEDS: DOCUSATE SODIUM 100 MG CAP PO SCH (08:35)
[2018-02-14] MEDS ORDERED: FUROSEMIDE 40 MG/4 ML VIAL IV PUSH SCH (09:00)
[2018-02-14] MEDS ORDERED: RIVAROXABAN 10 MG TAB PO SCH (09:00)
[2018-02-14] MEDS ORDERED: LISINOPRIL 20 MG TAB PO SCH (09:00)
[2018-02-14] MEDS ORDERED: POTASSIUM CHLORIDE 20 MEQ CONTROLLED RELEASE TAB PO SCH (09:00)
[2018-02-14] MEDS: ACETAMINOPHEN 325 MG TAB PO PRN (09:17)
[2018-02-14] MEDS ORDERED: THERM PO (10:01)
[2018-02-14] MEDS ORDERED: AMIO200T PO (10:01)
[2018-02-14] MEDS ORDERED: METO25TA3 PO (10:01)
[2018-02-14] MEDS ORDERED: HYDR-3516 PO (10:01)
[2018-02-14] MEDS ORDERED: DOCU1CAP39 PO (10:01)
[2018-02-14] MEDS ORDERED: ASPI81 PO (10:01)
--- NOTE | 2018-02-14 10:31 | HHI.DS ---
Discharge Summary Admission Date Feb 09, 2018 at 05:44 Discharge Date: Feb 14, 2018 Admitting Diagnosis CAD (1) Coronary artery disease Diagnosis: Principal ICD Codes: I25.10 - Atherosclerotic heart disease of [place] coronary artery without angina pectoris (2) Hyperlipemia Diagnosis: Principal ICD Codes: E78.5 - Hyperlipidemia, unspecified (3) Hypertension Diagnosis: Principal ICD Codes: I10 - Essential (primary) hypertension (4) Afib ICD Codes: I48.91 - Unspecified atrial fibrillation (5) S/P CABG x 3 Diagnosis: Secondary ICD Codes: Z95.1 - Presence of aortocoronary bypass graft (6) Hypoxemia Diagnosis: Principal ICD Codes: R09.02 - Hypoxemia Status: Acute Procedures 02/09 1. Off-pump Coronary Artery Bypass Grafting x 3 with Left Internal Mammary Artery (ADAN) to Left Anterior Descending (LAD), reverse saphenous vein graft to the Diagonal 1 (D1) branch of the LAD, reverse saphenous vein graft to the Posterolateral Branch of the Right Coronary Artery (RPLB) 2. Left Atrial Appendage Excision 3. Left Leg Endoscopic Vein [place] 4. Synchronized Cardioversion 5. Intraoperative Vein Mapping CBC/BMP: 02/11/18 0340 02/13/18 0925 Significant Findings Laboratory Tests Test 02/13/18 09:25 Blood Urea Nitrogen 21 MG/DL (7-18) Creatinine 1.37 MG/DL (0.60-1.30) Random Glucose 192 MG/DL (74-106) Estimat Glomerular Filtration Rate 51 ML/MIN (>89) Imaging Last Impressions Chest X-Ray 02/13/18 0000 Signed Impressions: Service Date/Time: Tuesday, February 13, 2018 09:33 - CONCLUSION: 1. Interval removal of left-sided chest tube and left subclavian central venous line with no pneumothorax. 2. Mild hazy opacity at the left lung base with apparent blunting of left costophrenic angle which could indicate infiltrate and/or effusion. Valente Chester MD PE at Discharge GENERAL: A&O x 3 SKIN: Warm and dry. prevena dressing to chest , incision left leg HEAD: Normocephalic. EYES: No scleral icterus. No injection or drainage. NECK: Supple, trachea midline. No JVD or lymphadenopathy. CARDIOVASCULAR: Regular rate and rhythm without murmurs, gallops, or rubs. RESPIRATORY: Breath sounds equal bilaterally. No accessory muscle use. GASTROINTESTINAL: Abdomen soft, non-tender, nondistended. MUSCULOSKELETAL: No cyanosis, or edema. BACK: Nontender without obvious deformity. No CVA tenderness. Hospital Course 02/10 up in chair , on nasal cannula remains in NSR was on xarelto at home leave chest tubes in , transfer to stepdown 02/11/18 No complaints today, doing well 02/12/18 No complaints today. Doing well 02/13 did not pass home walk test decrease lasix dose, dc plavix and resume xarelto eval for dc in am recheck BMP in am 02/14 stable for dc , will need home 02 continue ASA, xarelto , BB home HCTZ Pt Condition on Discharge: Good Discharge Disposition: Disch w/ Home Health Serv Discharge Instructions DIET: Follow Instructions for: Heart Healthy Diet Activities you can perform: Full Weight Bearing, Shower Only-No Bath Activities to avoid: Strenuous Activity, Driving Additional Activity Instructio: no lifting > 8 lbs or gallon of milk Follow up Referrals: Cardiology PCP Follow-up Surgical with [facility] New Medications: Oxygen (O2) (Oxygen (O2)) Device LITER SUSAN.CANULA CONTINUOUS for Prevent Hypoxemia, #2 Oxygen Concentrator Portable Gaseous 2 L/min via Nasal Canula Continuous For 99 months Amiodarone (Amiodarone) 200 Mg Tab 200 MG PO Q12HR for heart rhythm, #28 TAB 0 Refills Aspirin (Tgt Aspirin) 81 Mg Chw 81 MG PO DAILY for Blood Clot Prevention, #30 EA 2 Refills Docusate Sodium (Dok) 100 Mg Cap 100 MG PO BID for Constipation, #60 CAP 0 Refills Hydrocodone/Acetaminophen (Hydrocodone-Acetamin 5-325 mg) 5 Mg-325 Mg Tablet 1 TAB PO Q4HR PRN for PAIN SCALE 1 TO 5, #40 TAB 0 Refills Metoprolol Tartrate (Metoprolol Tartrate) 25 Mg Tab 12.5 MG PO Q12HR for Blood Pressure Management, #60 TAB 2 Refills Multiple Vitamins W/ Minerals (Thera M Plus) 1 Tab 1 TAB PO DAILY for multi vitamin, #30 TAB 2 Refills Continued Medications: Atorvastatin (Atorvastatin) 40 Mg Tab 40 MG PO HS for Cholesterol Management, #30 TAB 0 Refills Hydrochlorothiazide (Hydrochlorothiazide) 25 Mg Tab 25 MG PO DAILY, #30 TAB 0 Refills Lactobacillus Acidophilus (Probiotic) 10 Billion Cell Cap 1 CAP PO TIDAC for Nutritional Supplement, #90 CAP 0 Refills Levothyroxine (Levothyroxine) 100 Mcg Tab 100 MCG PO DAILY for Thyroid, #30 TAB 0 Refills Lisinopril (Lisinopril) 20 Mg Tab 20 MG PO DAILY, #30 TAB 0 Refills Loratadine (Claritin) 10 Mg Cap 10 MG PO DAILY for Allergy Management, CAP 0 Refills Rivaroxaban (Xarelto) 10 Mg Tab 10 MG PO DAILY for Blood Clot Prevention, TAB 0 Refills [facility] Feb 14, 2018 10:31
== END 2018-02-14 11:55 | disposition home health service (06) | DRG 236 ==
LOC: HSDI 05:44 → EDUNIT# 07:30 → HCVI 12:45 → HCPC 02-10 11:57
PROVIDERS: ADMIT Thoracic Surgery (Cardiothoracic Vascular Surgery); ATTEND Thoracic Surgery (Cardiothoracic Vascular Surgery)
PROC: 021109W Bypass Coronary Artery, Two Arteries from Aorta with Autologous Venous Tissue, Open Approach (ICD-10-PCS; 2018-02-09)
PROC: 02B70ZK Excision of Left Atrial Appendage, Open Approach (ICD-10-PCS; 2018-02-09)
PROC: 4A033BC Measurement of Arterial Pressure, Coronary, Percutaneous Approach (ICD-10-PCS; 2018-02-09)
PROC: 5A2204Z Restoration of Cardiac Rhythm, Single (ICD-10-PCS; 2018-02-09)
PROC: 02100Z9 Bypass Coronary Artery, One Artery from Left Internal Mammary, Open Approach (ICD-10-PCS; principal; 2018-02-09 07:19)
PROC: 06BQ4ZZ Excision of Left Saphenous Vein, Percutaneous Endoscopic Approach (ICD-10-PCS; 2018-02-09 07:19)
DX: I25.10 Atherosclerotic heart disease of native coronary artery without angina pectoris (principal); I48.2 Chronic atrial fibrillation; I10 Essential (primary) hypertension; E78.5 Hyperlipidemia, unspecified; R09.02 Hypoxemia; E03.9 Hypothyroidism, unspecified; Z79.01 Long term (current) use of anticoagulants; Z86.73 Personal history of transient ischemic attack (TIA), and cerebral infarction without residual deficits
CPT/HCPCS: 36430; 71045; 76937; 80048; 82948; 83735; 85014; 85025; 85027; 86850; 86900; 86901; 86920; 88305; 90732; 93005; 93318; 94002; 94150; 94618; 94640; 94664; 94667; 94668; C1768; J0131; J0690; J1644; J1815; J1817; J1940; J2250; J2370; J2720; J3010; J3370; J3475; J3480; J7040; J7050; J7120; P9016; P9045